=== PATIENT | female | born 1990 | race American Indian/Alaskan Native ===

== ENCOUNTER 2020-05-30 07:42 | Emergency (ER) | payer MEDICAID ==
[2020-05-30 09:49] LABS: Bilirubin,Urine NEG (Negative); Blood,Urine MOD (Negative); Color,Urine Yellow (Yellow); Protein,Urine <15 mg/dL mg/dL (Negative); Urobilinogen,Urine < 2.0 mg/dL (<2.0)
[2020-05-30 10:00] LABS: HCG Qualitative,Urine Positive (Negative)
--- NOTE | 2020-05-30 12:54 | Emergency Department Report ---
ED Female HPI - General Chief complaint: Abdominal Pain Stated complaint: PELVIC PAIN/ABD PAIN Time Seen by Provider: 05/30/20 11:01 Source: patient Mode of arrival: Ambulatory Limitations: No Limitations - History of Present Illness Initial comments: This is a 29-year-old female G3, P2 presents with last menstrual period of April 11, 2020 complaining of lower pressure type pelvic pain for the past couple of days. Patient states that she has never had this kind of pain in the pelvic area before. Patient denies vaginal bleeding, dysuria. Patient states pain is localized to the lower pelvic region suprapubic as well as along the sides. She denies fever/chills/nausea vomiting or diarrhea. - Related Data Previous Rx's Medication Instructions Recorded Last Taken Type Vit-Fe Fumar-FA [ 1 tab PO QDAY #60 tablet 05/30/20 Unknown Rx Vitamin] Allergies Allergy/AdvReac Type Severity Reaction Status Date / Time No Known Allergies Allergy Unverified 05/30/20 08:03 ED Review of Systems ROS: Stated complaint: PELVIC PAIN/ABD PAIN Other details as noted in HPI Comment: All other systems reviewed and negative ED Past Medical Hx - Past Medical History Previous Medical History?: No - Surgical History Past Surgical History?: No - Medications Home Medications: Home Medications Medication Instructions Recorded Confirmed Last Taken Type Vit-Fe Fumar-FA [ 1 tab PO QDAY #60 tablet 05/30/20 Unknown Rx Vitamin] ED Physical Exam - General Limitations: No Limitations General appearance: alert, in no apparent distress - Head Head exam: Present: atraumatic, normocephalic - Eye Eye exam: Present: normal appearance - ENT ENT exam: Present: mucous membranes moist - Neck Neck exam: Present: normal inspection - Respiratory Respiratory exam: Present: normal lung sounds bilaterally. Absent: respiratory distress - Cardiovascular Cardiovascular Exam: Present: regular rate, normal rhythm. Absent: systolic murmur, diastolic murmur, rubs, gallop - GI/Abdominal GI/Abdominal exam: Present: soft, normal bowel sounds - Extremities Exam Extremities exam: Present: normal inspection - Back Exam Back exam: Present: normal inspection - Neurological Exam Neurological exam: Present: alert, oriented X3 - Psychiatric Psychiatric exam: Present: normal affect, normal mood - Skin Skin exam: Present: warm, dry, intact, normal color. Absent: rash ED Course Vital Signs 05/30/20 05/30/20 05/30/20 08:04 16:34 16:35 Temperature 98 F 97.8 F Pulse Rate 86 88 Respiratory 22 18 16 Rate Blood Pressure 146/83 148/60 [Left] O2 Sat by Pulse 100 100 Oximetry ED Medical Decision Making - Lab Data Laboratory Last Values HCG, Quant 4851 mIU/mL (0-4) H 05/30/20 11:44 Urine Color Yellow (Yellow) 05/30/20 Unknown Urine Turbidity Clear (Clear) 05/30/20 Unknown Urine pH 6.0 (5.0-7.0) 05/30/20 Unknown Ur Specific [place] 1.015 (1.003-1.030) 05/30/20 Unknown Urine Protein <15 mg/dl mg/dL (Negative) 05/30/20 Unknown Urine Glucose (UA) Neg mg/dL (Negative) 05/30/20 Unknown Urine Ketones Tr mg/dL (Negative) 05/30/20 Unknown Urine Blood Mod (Negative) 05/30/20 Unknown Urine Nitrite Neg (Negative) 05/30/20 Unknown Urine Bilirubin Neg (Negative) 05/30/20 Unknown Urine Urobilinogen < 2.0 mg/dL (<2.0) 05/30/20 Unknown Ur Leukocyte Esterase Mod (Negative) 05/30/20 Unknown Urine WBC (Auto) 5.0 /HPF (0.0-6.0) 05/30/20 Unknown Urine RBC (Auto) 4.0 /HPF (0.0-6.0) 05/30/20 Unknown U Epithel Cells (Auto) 7.0 /HPF (0-13.0) 05/30/20 Unknown Urine HCG, Qual Positive (Negative) A 05/30/20 Unknown - Radiology Data Radiology results: report reviewed, image reviewed US OB <= 14 weeks fetus INDICATION / CLINICAL INFORMATION: pelv pain. TECHNIQUE: Transabdominal and Transvaginal. COMPARISON: None available. FINDINGS: UTERUS: Appears within normal limits. GESTATIONAL SAC: Well-defined oval shape and intrauterine in location. YOLK SAC: No significant abnormality. EMBRYO/FETUS: - [place]-Rump Length = 0.2 cm = 6 weeks 0 days. - Heart Rate, beats per minute (if present) = 99 beats per minute ADNEXA: No significant abnormality. FREE FLUID: None. ADDITIONAL FINDINGS: None. IMPRESSION: 1. Single, intrauterine with estimated sonographic age of 6 weeks 0 days. Possible bradycardia, suggest ultrasound follow-up for further evaluation. Signer Name: Fredrick Simon MD Signed: 05/30/2020 4:25 PM Workstation Name: [id number] Transcribed By: MAILE Dictated By: Fredrick Simon MD Electronically Authenticated By: Fredrick Simon MD Signed Date/Time: 05/30/20 8909 Critical care attestation.: If time is entered above; I have spent that time in minutes in the direct care of this critically ill patient, excluding procedure time. ED Disposition Clinical Impression: Early stage of Disposition: DC-01 TO HOME OR SELFCARE Is pt being admited?: No Does the pt Need Aspirin: No Condition: Stable Instructions: Abdominal Pain (ED), (ED) Additional Instructions: follow up with ob follow up in 2-3 days fro repeat quantitative retun to Ed if any worsening sx Prescriptions: Vit-Fe Fumar-FA [ Vitamin] 1 tab PO QDAY #60 tablet Referrals: PRIMARY CARE, [Primary Care Provider] - 3-5 Days [facility] [Provider Group] - 3-5 Days [facility] [Provider Group] - 3-5 Days [facility] [Provider Group] - 3-5 Days Forms: Work/School Release Form(ED) Time of Disposition: 16:45
--- NOTE | 2020-05-30 16:30 | Ultrasound Report ---
US transvaginal INDICATION / CLINICAL INFORMATION: pelv pain. TECHNIQUE: Transabdominal and Transvaginal. COMPARISON: None available. FINDINGS: UTERUS: Appears within normal limits. GESTATIONAL SAC: Well-defined oval shape and intrauterine in location. YOLK SAC: No significant abnormality. EMBRYO/FETUS: - [place]-Rump Length = 0.2 cm = 6 weeks 0 days. - Heart Rate, beats per minute (if present) = 99 beats per minute ADNEXA: No significant abnormality. FREE FLUID: None. ADDITIONAL FINDINGS: None. IMPRESSION: 1. Single, intrauterine with estimated sonographic age of 6 weeks 0 days. Possible bradyca rdia, suggest ultrasound follow-up for further evaluation. Signer Name: Fredrick Simon MD Signed: 05/30/2020 4:25 PM Workstation Name: [id number]
--- NOTE | 2020-05-30 16:30 | Ultrasound Report ---
US OB <= 14 weeks fetus INDICATION / CLINICAL INFORMATION: pelv pain. TECHNIQUE: Transabdominal and Transvaginal. COMPARISON: None available. FINDINGS: UTERUS: Appears within normal limits. GESTATIONAL SAC: Well-defined oval shape and intrauterine in location. YOLK SAC: No significant abnormality. EMBRYO/FETUS: - [place]-Rump Length = 0.2 cm = 6 weeks 0 days. - Heart Rate, beats per minute (if present) = 99 beats per minute ADNEXA: No significant abnormality. FREE FLUID: None. ADDITIONAL FINDINGS: None. IMPRESSION: 1. Single, intrauterine with estimated sonographic age of 6 weeks 0 days. Possible bradyca rdia, suggest ultrasound follow-up for further evaluation. Signer Name: Fredrick Simon MD Signed: 05/30/2020 4:25 PM Workstation Name: [id number]
[2020-05-30 16:36] VITALS: BP 148/60
== END 2020-05-30 16:58 | disposition home or self-care (01) ==
LOC: ED 07:42
DX: Z34.90 Encounter for supervision of normal pregnancy, unspecified, unspecified trimester (principal); Z79.899 Other long term (current) drug therapy
CPT/HCPCS: 36415; 76801; 76817; 76830; 81001; 81025; 84702